=== PATIENT | male | born 1940 | race Caucasian/White ===

== ENCOUNTER → 2019-03-03 | Outpatient (CLI) | payer MEDICARE, MEDICAID ==
--- NOTE | 2019-03-03 13:15 | PCVCIMAG ---
APPROVED REPORT Study performed: 03/03/2019 12:20:42 EXAM: Comprehensive 2D, Doppler, and color-flow Echocardiogram Patient Location: Echo lab Status: routine BSA: 1.88 HR: 71 bpmBP: 138/82 mmHg Rhythm: NSR Other Information Study Quality: Technically Difficult Risk Factors: Cardiac Risk Factors: Hyperlipidemia, HTN Indications AAA 2D Dimensions IVSd: 11.79 (7-11mm)LVOT Diam: 22.84 (18-24mm) LVDd: 38.36 mm PWd: 10.28 (7-11mm)Ascending Ao: 31.81 (22-36mm) LVDs: 35.20 (25-40mm) Left Atrium: 37.27 (27-40mm) Aortic Root: 27.98 mm LV Single Plane 4CH: 33.97 % LV Single Plane 2CH: 45.83 % Biplane EF: 40.4 % Volumes Left Atrial Volume (Systole) Single Plane 4CH: 26.87 mLSingle Plane 2CH: 32.36 mL LA ESV Index: 17.00 mL/m2 Aortic Valve AoV Peak Juan Antonio.: 1.52 m/s AO Peak Gr.: 9.19 mmHgLVOT Max P.18 mmHg LVOT Max V: 1.02 m/s ROSALVA Vmax: 2.76 cm2 Mitral Valve E/A Ratio: 0.9 MV Decel. Time: 241.56 ms MV E Max Juan Antonio.: 0.55 m/s MV A Juan Antonio.: 0.60 m/s TDI E/Lateral E': 11.00E/Medial E': 11.00 Medial E' Juan Antonio.: 0.05 m/s Lateral E' Juan Antonio.: 0.05 m/s Pulmonary Valve PV Peak Gr.: 2.21 mmHg Pulmonary Vein P Vein S: 0.59 m/sP Vein A: 0.05 m/s P Vein D: 0.34 m/sP Vein A Dur.: 90.0 msec P Vein S/D Ratio: 1.74 Left Ventricle The left ventricle is normal size. segmental wall motion abnormalities noted There is normal left ventricular wall thickness. Left ventricular ejection fraction is mild to moderately decreased. LVEF is 35-40%. Right Ventricle The right ventricle is normal size. The right ventricular systolic function is normal. Atria The left atrium size is normal. The right atrium size is normal. Aortic Valve The Aortic valve is sclerotic. No aortic regurgitation is present. There is no aortic valvular stenosis. Mitral Valve The mitral valve is normal in structure. There is no mitral valve regurgitation noted. No evidence of mitral valve stenosis. Tricuspid Valve The tricuspid valve is normal in structure. There is no tricuspid valve regurgitation noted. Pulmonic Valve The pulmonary valve is normal in structure. There is no pulmonic valvular regurgitation. Great Vessels The aortic root is normal in size. IVC is normal in size and collapses >50% with inspiration. Pericardium There is no pericardial effusion. <Conclusion> The left ventricle is normal size. LVEF is 35-40%. segmental wall motion abnormalities noted The Aortic valve is sclerotic. The mitral valve is normal in structure. The tricuspid valve is normal in structure. The pulmonary valve is normal in structure. There is no pericardial effusion.
== END | disposition home or self-care (01) ==
LOC: PCVCIMAG 13:24
PROVIDERS: ATTEND Internal Medicine
DX: I35.0 Nonrheumatic aortic (valve) stenosis (principal); I71.4 Abdominal aortic aneurysm, without rupture; I25.10 Atherosclerotic heart disease of native coronary artery without angina pectoris; I10 Essential (primary) hypertension; F17.200 Nicotine dependence, unspecified, uncomplicated; I69.398 Other sequelae of cerebral infarction; H53.9 Unspecified visual disturbance; E11.9 Type 2 diabetes mellitus without complications; Z79.84 Long term (current) use of oral hypoglycemic drugs; Z88.8 Allergy status to other drugs, medicaments and biological substances
CPT/HCPCS: 93005; 93306; G0463